=== PATIENT | male | born 1950 | race Caucasian/White ===

== ENCOUNTER → 2018-10-07 | Outpatient (CLI) | payer MEDICARE, OTHER ==
[~2018-10-07] MED LIST: Azor 5-40 MG T1 EACH PO; LEVO-T50 MCG PO; SIMV10 PO
== END | disposition home or self-care (01) ==
LOC: LAB SHORT 12:45 → LAB EV 12:45
DX: R30.0 Dysuria (principal)
CPT/HCPCS: 87086

== ENCOUNTER 2018-10-26 10:28 | Emergency (ER) | payer MEDICARE, OTHER ==
[~2018-10-26] VITALS: Ht 195.6 cm; Wt 106.1 kg
[2018-10-26 10:58] LABS: Source, Urine Clean Catch
[2018-10-26 11:02] LABS: Bilirubin, Urine Neg (Neg); Blood, Urine 5+ (Neg); Glucose Qualitative, Urine Neg (Neg); Ketones, Urine 1+ (Neg); Leukocyte Esterase, Urine 2+ (Neg); Nitrite, Urine Pos (Neg); Protein, Urine 3+ (Neg); Urobilinogen, Urine NORM (Normal)
[2018-10-26 11:30] LABS: Appearance, Urine Turbid (Clear); Color, Urine Brown (P-Yellow)
[2018-10-26 11:33] LABS: Red Blood Cells, Urine TNTC /hpf (0-2)
[2018-10-26 11:34] LABS: Squamous Epithelial Cells Few /hpf (Few)
[2018-10-26 11:35] LABS: Amorphous Light (0-Heavy); Bacteria Mod /hpf
[2018-10-26 13:35] LABS: BASOPHILS ABSOLUTE AUTO 0.05 K/mm3 (0.00-0.23); BASOPHILS PERCENT AUTO 0 % (0-2); EOSINOPHILS ABSOLUTE AUTO 0.01 K/mm3 (0.00-0.68); EOSINOPHILS PERCENT AUTO 0 % (0-6); Hematocrit 42.8 % (37.0-53.0); Hemoglobin 13.5 g/dL (13.5-17.5); IMMATURE GRAN ABSOLUTE AUTO 0.07 K/mm3 (0.00-0.10); IMMATURE GRAN PERCENT AUTO 1 % (0-1); LYMPHOCYTES PERCENT AUTO 9 % (21-46); MONOCYTES ABSOLUTE AUTO 1.07 K/mm3 (0.16-1.47); MONOCYTES PERCENT AUTO 9 % (4-13); Mean Corpuscular HGB 29.2 pg (26.0-34.0); Mean Corpuscular HGB Conc 31.5 g/dL (31.5-36.5); Mean Corpuscular Volume 92 fL (80-100); NEUTROPHILS PERCENT AUTO 81 % (41-73); Platelet Count 381 K/mm3 (150-400); RDW Coefficient Variation 12.1 % (11.7-14.2); RDW Standard Deviation 41.4 fL (35.1-46.3); Red Blood Cell Count 4.63 M/mm3 (4.30-5.90)
[2018-10-26 14:17] LABS: Albumin, Blood 3.2 g/dL (3.4-5.0); Albumin/Globulin Ratio 0.7 (0.8-1.8); Bilirubin, Total 0.5 mg/dL (0.1-1.0); Bun/Creatinine Ratio 14.3 (12.0-20.0); Calcium, Blood 9.2 mg/dL (8.5-10.1); Creatinine, Blood 2.66 mg/dL (0.60-1.20); Globulin, Blood 4.8 g/dL (2.2-4.0); Potassium, Blood 4.3 mmol/L (3.5-5.5)
[2018-10-26] MEDS ORDERED: TAMS.4ER PO (15:02)
[2018-10-26] MEDS ORDERED: CEFD300 PO (16:35)
[2018-10-26] MEDS ORDERED: ONDA4ODT MM (18:02)
== END 2018-10-26 19:10 | disposition home or self-care (01) ==
LOC: ER 10:28
PROVIDERS: Physician Assistant
DX: N40.1 Benign prostatic hyperplasia with lower urinary tract symptoms (principal); N13.8 Other obstructive and reflux uropathy; N13.30 Unspecified hydronephrosis; N39.0 Urinary tract infection, site not specified; Z79.899 Other long term (current) drug therapy; I10 Essential (primary) hypertension; E03.9 Hypothyroidism, unspecified; E78.00 Pure hypercholesterolemia, unspecified; Z87.891 Personal history of nicotine dependence
CPT/HCPCS: 36415; 51702; 74176; 80053; 81001; 83690; 85025; 87086; 96365-59; 96366-59; 99284-25; J0696

== ENCOUNTER → 2019-02-09 | Outpatient (CLI) | payer MEDICARE, OTHER ==
[~2019-02-09] MED LIST changes: +CEFD300 PO; +ONDA4ODT MM; +TAMS.4ER PO
== END ==
LOC: LAB EV 17:00 → LAB SHORT 17:00
DX: N39.0 Urinary tract infection, site not specified (principal)
CPT/HCPCS: 87077; 87086; 87186

== ENCOUNTER → 2019-03-03 | Outpatient (CLI) | payer MEDICARE, OTHER | END | disposition home or self-care (01) | LOC: LAB SHORT 18:05 → LAB EV 18:05 | DX: N39.0 Urinary tract infection, site not specified (principal) | CPT/HCPCS: 87077; 87086; 87186 ==

== ENCOUNTER 2019-03-24 20:50 | Emergency (ER) | payer MEDICARE, OTHER ==
[~2019-03-24] VITALS: Ht 195.6 cm; Wt 102.1 kg
== END 2019-03-24 21:57 | disposition home or self-care (01) ==
LOC: ER 20:50
DX: T83.098A Other mechanical complication of other urinary catheter, initial encounter (principal); Z79.899 Other long term (current) drug therapy; I10 Essential (primary) hypertension; E03.9 Hypothyroidism, unspecified; E78.5 Hyperlipidemia, unspecified; Z87.891 Personal history of nicotine dependence
CPT/HCPCS: 99282

== ENCOUNTER 2019-03-25 19:04 | Emergency (ER) | payer MEDICARE, OTHER ==
[~2019-03-25] VITALS: Ht 195.6 cm; Wt 104.3 kg
== END 2019-03-25 20:32 | disposition home or self-care (01) ==
LOC: ER 19:04
DX: T83.091A Other mechanical complication of indwelling urethral catheter, initial encounter (principal); N40.1 Benign prostatic hyperplasia with lower urinary tract symptoms; R33.8 Other retention of urine; I10 Essential (primary) hypertension; Z87.891 Personal history of nicotine dependence; Z79.899 Other long term (current) drug therapy
CPT/HCPCS: 51702; 51798; 99282-25